=== PATIENT | female | born 1970 | race Caucasian/White ===

== ENCOUNTER 2016-11-03 20:36 | Emergency (ER) | payer OTHER ==
[~2016-11-03] VITALS: Ht 162.6 cm; Wt 61.4 kg
[2016-11-03 20:40] VITALS: BP 152/106; PULSE 108; RESP 20; O2SAT 100
[2016-11-03 21:17] LABS: BASOPHILS % (AUTO) 0.9 % (0-3); EOSINOPHILS % (AUTO) 0.4 % (0-5); MONOCYTES % (AUTO) 4.1 % (4-12); Mean Corpuscular Hemoglobin 31.7 pg (27.0-35.0); Mean Corpuscular Volume 93.2 fL (81-100); NEUTROPHILS % (AUTO) 69.6 % (40-74); Platelet Count 355 bil/L (150-400)
[2016-11-03 21:39] LABS: Magnesium 1.9 mg/dL (1.6-2.6)
--- NOTE | 2016-11-03 21:52 | ED.REPORT ---
HPI-Abd Pain F 40 and Over Date of Service November 03, 2016 ED Provider: Siddhartha Savage MD A 45 year old female with a previous history of right renal stent placement presents to the ED with right lower abdominal pain that began this morning. The pain radiates to her right flank and is exacerbated by movement. She also reports experiencing urinary retention. Patient reports similar symptoms during her previous episode of kidney stones. She took Tramadol and ibuprofen with little relief. Patient denies any visible hematuria. Nursing Notes Stated Complaint: POSSIBLE KIDNEY STONES Chief Complaint: Female Abdominal Pain Nursing Notes Reviewed: Yes Allergies: Coded Allergies: Cephalosporins (Verified Allergy, Unknown, 04/26/09) Penicillins (Verified Allergy, Unknown, 04/26/09) Uncoded Allergies: Cephalosporins (Allergy, Unknown, 01/15/04) PCN,KEFLEX (Allergy, Unknown, 01/15/04) Penicillin (Allergy, Unknown, 01/15/04) General Time Seen by MD: 21:39 Chief Complaint Abdominal pain Hx Obtained From: Patient Arrived By: Walk-in Sudden in Onset?: No Onset Occurred: 21 - 23 hours ago Symptom Duration: Since onset Progression since Onset: Gradually worsening Location: : Abdomen lower Quality: Painful Radiation: : Flank right Severity: Current: Moderate Severity: Maximum: Moderate Associated with: Denies: Hematuria Pertinent Negative: Pt denies other symptoms Exacerbated by: Movement Recent Healthcare: No recent doctor visit, No recent hospitalization Risk Factors )( AAA Risk Stratification Risk factors reviewed Past Medical History Past Medical History Kidney Stones Past Surgical History R renal stent Smoking History Unknown if Ever Smoker Social History Other Social History: Good social support, Local resident Ambulatory Status Independent Review of Systems GI: Reports: Abdominal pain Female: Reports: Flank pain (R), Urination decreased, Denies: Hematuria Complete sys rev & neg: except as marked. Physical Exam Vital Signs Vital Signs (First) Date Time Temp Pulse Resp B/P Pulse Ox O2 Delivery O2 Flow Rate FiO2 11/03/16 20:40 36.9 108 20 152/106 100 11/04/16 01:37 Room Air Initial VS: Reviewed, Vital signs abnormal Head / Eyes: Atraumatic, Normocephalic, PERRL Extremities: Vascular intact, Neuro intact, No swelling, No tenderness Skin: Warm, Dry, No cyanosis Neurologic: Alert, Oriented, Nonfocal Psychiatric: Mood/affect normal, Behavior normal, Normal thought content General/Constitutional: Awake, Alert Distress / Hydration: Positive: Distress moderate Respiratory / Chest: Atraumatic, Breath sounds NL, Breath sounds = bilat, No respiratory distress Cardiovascular: Heart rate NL, Regular rhythm, Heart sounds NL Abdomen: Atraumatic, Soft Tenderness/Guarding/Rebound: Positive: Guarding involuntary, Tender RLQ... ( Severe), Tender flank R Back: Atraumatic Flank / Spine / Paraspinal: Positive: Flank tender R BACK: Fairly severe CVAT Interpretation & Diagnostics Lab Results Interpretation Result Diagram: 11/03/16210411/03/162104 Test 11/03/16 21:05 11/03/16 21:50 White Blood Count 12.3th/mm3 (3.8-10.1) Red Blood Count 4.38mil/mm3 (3.90-5.20) Hemoglobin 13.9g/dL (12.0-15.6) Hematocrit 40.8% (35.0-46.0) Mean Corpuscular Volume 93.2fL (81-100) Mean Corpuscular Hemoglobin 31.7pg (27.0-35.0) Mean Corpuscular Hemoglobin Concent 34.1% (32.0-37.0) Red Cell Distribution Width 12.0% (12.3-15.4) Platelet Count 355bil/L (150-400) Neutrophils (%) (Auto) 69.6% (40-74) Lymphocytes (%) (Auto) 24.7% (14-46) Monocytes (%) (Auto) 4.1% (4-12) Eosinophils (%) (Auto) 0.4% (0-5) Basophils (%) (Auto) 0.9% (0-3) Sodium Level 141mEq/L (134-144) Potassium Level 3.7mEq/L (3.5-5.2) Chloride Level 102mEq/L (97-108) Carbon Dioxide Level 20mmol/L (18-29) Blood Urea Nitrogen 10mg/dL (6-24) Creatinine 0.62mg/dL (0.57-1.00) Estimat Glomerular Filtration Rate 150mL/min (>59) Glucose Level 102mg/dL (60-99) Calcium Level 9.9mg/dL (8.5-10.1) Magnesium Level 1.9mg/dL (1.6-2.6) Total Bilirubin 0.2mg/dL (0.0-1.2) Aspartate Amino Transf (AST/SGOT) 19U/L (0-50) Alanine Aminotransferase (ALT/SGPT) 12U/L (0-32) Alkaline Phosphatase 71U/L (25-150) Total Protein 7.8g/dL (6.4-8.4) Albumin 4.8g/dL (3.4-5.0) Lipase 31U/L (13-60) Hold Burger Top Tube Received (Received) Urine Color Yellow (YELLOW) Urine Appearance Clear (CLEAR,HAZY) Urine pH 6.5 (5.0-8.0) Urine Specific [place] 1.015 (1.003-1.035) Urine Protein Negativemg/dL (NEG,TRACE) Urine Glucose (UA) Negativemg/dL (NEGATIVE) Urine Ketones 15mg/dL (NEGATIVE) Urine Occult Blood Small (NEGATIVE) Urine Nitrite Negative (NEGATIVE) Urine Bilirubin Negative (NEGATIVE) Urine Urobilinogen Normalmg/dL (NORMAL) Urine Leukocyte Esterase Negative (NEGATIVE) Urine RBC 11-50/hpf (0-2) Urine WBC 0-5/hpf (0-5) Urine Epithelial Cells Moderate/hpf (NONE-MOD) Urine Crystals None seen (NONE SEEN) Urine Bacteria None/hpf (NONE-FEW) Urine Hyaline Casts None/lpf (NONE) Urine Granular Casts None seen (NONE SEEN) Urine Waxy Casts None seen (NONE SEEN) Urine Red Blood Cell Casts None seen (NONE SEEN) Urine White Blood Cell Casts None seen (NONE SEEN) Urine Mucus Present (None Seen) Urine Trichomonas None seen (NONE SEEN) Urine Yeast None (NONE SEEN) Urine Culture Reflexed Not indicated Lab Results Interpretation: URINE DIP SP [place]: 1.015 pH: 6 Leukocytes: Trace Nitrites: - Protein: Trace Glucose: Normal Ketones: Moderate Uroglobin: + Bilirubin: - Blood: 250 + Hemoglobin: 250 + Point of Care Testing: Preg test neg - urine CT Abd / Pelvis Interpretation IMPRESSION: Mild right pelvic caliectasis with no stones evident associated wtih the surgical clip at the region of the right ureteral pelvic junction. Possibility of mild UPJ obstruction associated with scarring is raised. Study type: Abdominal CT no contrast Interpretation / Wet Read by: Interpret - Radiologist () Re-Eval/Medical Decision Med Decision/Clinical Course 5-year-old female with a history of kidney stones presents with right flank pain and hematuria. There is no evidence of infection. She does have some right renal pelvis dilatation but no hydroureter or stone is seen. She was given a small prescription of hydrocodone/APAP and instructions to follow-up with Dr. Arce. Re-Evaluation/Progress : Time of Eval: 00:44 Patient Status: Condition improved Re-Evaluation/Progress Note: Patient is rechecked. Pain is still present but better. She is informed of her lab results and diagnosis. All of the patient's questions are addressed. She understands and agrees with the treatment plan. Counseled Regarding: Diagnosis, Lab results, Need for follow-up, When/why to return to ED Discharge & Departure Primary Impression: Renal colic on right side Disposition: Home Discharge Condition All VS Reviewed: Yes Condition: Improved Patient Instructions: Kidney Stones (GEN) Additional Instructions: There is blood in your urine but no evidence of infection. It is unclear whether you may have passed a stone or if there is scarring in that area. Hydrocodone/acetaminophen 5/325, one or 2 tablets every 4-6 hours as needed for severe pain, #10 dispensed. As the pain diminishes you can use your regular pain medications. Plenty of fluids. Strain your urine to watch for any stone. Follow up with Dr. Arce, call Saturday for an appointment. Referrals: [facility] LIBRADO SHAVER (PCP) Chavo Arce MD [facility] Scribe Attestation Portions of this note were transcribed by Cece Miranda. I, Dr. Savage personally performed the history, physical exam and medical decision-making; I reviewed and confirmed the accuracy of the information in the transcribed note. Signed by: Marga Curry, 11/04/16 0048 Siddhartha Savage MD November 03, 2016 21:52 CECE MIRANDA November 03, 2016 21:58
[2016-11-03] MEDS ORDERED: Ondansetron 2 mg/mL 2 mL Inj IVPUSH PRN (22:00)
[2016-11-04 00:39] LABS: APPEARANCE,URINE CLEAR (CLEAR,HAZY); COLOR,URINE YELLOW (YELLOW); OCCULT BLOOD,URINE SMALL (NEGATIVE); PH,URINE 6.5 (5.0-8.0); UROBILINOGEN,URINE NORMAL (NORMAL)
[2016-11-04] MEDS ORDERED: _HYDROcodone/APAP 5-325 mg Tablet PO PRN (00:50)
[2016-11-04 01:37] VITALS: BP 144/93; PULSE 89; RESP 18; O2SAT 100
--- NOTE | 2016-11-04 07:44 | DRSVH ---
PROCEDURE: CT KUB ([id number]) INDICATIONS: left flank pain TECHNIQUE: Noncontrast 5 mm thick sections acquired from the diaphragms to the symphysis. 5 mm thick coronal an d sagittal reformats were then performed. For radiation dose reduction, the following was used: aut omated exposure control, adjustment of mA and/or kV according to patient size. COMPARISON: None. FINDINGS: Image quality: Excellent. Lung bases: Lung bases are clear. Heart size is normal. Urinary system: Both kidneys are normal in size. No kidney stones. There is mild right renal pelvi c dilatation. Surgical clip adjacent to the right renal pelvis is present. No left hydronephrosis or perinephric fat stranding. Both ureters appear non-dilated throughout their expected courses. Bladd er wall thickness is normal; no calcified bladder stones. Other solid organs: Liver and spleen are normal in size. Gallbladder is within normal limits. Panc reas is normal in contours. No adrenal nodules. Peritoneum and bowel: Unenhanced bowel loops demonstrate normal wall thickness and caliber. No free fluid or air. Normal appendix. Nodes and vessels: No retroperitoneal or mesenteric adenopathy by size criteria. Aorta and inferior vena cava are normal in caliber. Abdominal wall: No ventral hernias. Pelvis: No free pelvic fluid. No inguinal hernias or adenopathy. Bones: No suspicious bony lesions. No vertebral body compression fractures. IMPRESSION: 1. No explanation for left flank pain. 2. No evidence of urinary tract calcification. 3. Normal appendix. 4. Mild right renal pelvic dilatation with adjacent surgical clips, possibly related to prior UPJ abigail silvia. Correlation with surgical history recommended. 5. Concordant with preliminary interpretation. Dictated by: Toni Martel M.D. on 11/04/2016 at 7:40 Approved by: Toni Martel M.D. on 11/04/2016 at 7:42
== END 2016-11-04 01:38 | disposition home or self-care (01) ==
LOC: SED 20:36
DX: N23 Unspecified renal colic (principal); Z88.8 Allergy status to other drugs, medicaments and biological substances; Z88.0 Allergy status to penicillin
CPT/HCPCS: 36415; 74176; 80053; 81000; 81025; 83690; 83735; 85025; 96374; 96375; 99285; J1885; J2405

== ENCOUNTER 2016-11-26 19:41 | Emergency (ER) | payer OTHER ==
[~2016-11-26] VITALS: Ht 162.6 cm; Wt 58.2 kg
[2016-11-26 19:44] VITALS: BP 141/80; PULSE 128; RESP 20; O2SAT 97
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
[2016-11-26 22:18] VITALS: BP 140/91; PULSE 106; RESP 21; O2SAT 100
== END 2016-11-26 22:09 | disposition home or self-care (01) ==
LOC: SED 19:41
DX: M54.5 Low back pain (principal); R51 Headache; M79.601 Pain in right arm; F11.20 Opioid dependence, uncomplicated; R31.9 Hematuria, unspecified; Y07.01 Husband, perpetrator of maltreatment and neglect; Y93.89 Activity, other specified; Y92.9 Unspecified place or not applicable; Y99.8 Other external cause status; Z88.0 Allergy status to penicillin; Z88.1 Allergy status to other antibiotic agents